=== PATIENT | female | born 1990 | race Asian ===

== ENCOUNTER 2017-06-03 22:57 | Emergency (ER) | payer OTHER ==
[~2017-06-03] VITALS: Ht 172.7 cm; Wt 64.0 kg
[2017-06-04 00:12] LABS: PLATELET COUNT 195 K/uL (152-353)
[2017-06-04 01:41] LABS: POTASSIUM 3.6 mmol/L (3.6-5.2); SODIUM 135 mmol/L (136-145)
[2017-06-04 02:27] VITALS: BP 110/69; TEMP 98.7
== END 2017-06-04 02:32 | disposition home or self-care (01) ==
LOC: ED 22:57
DX: B34.9 Viral infection, unspecified (principal)
CPT/HCPCS: 36415; 80053; 80307; 81000; 85027; 87081; 87804; 87880; 96374; 99284; G0479; J1885

== ENCOUNTER 2019-01-12 06:00 | Emergency (ER) | payer BC ==
[~2019-01-12] VITALS: Ht 170.2 cm; Wt 61.7 kg
[2019-01-12 06:10] VITALS: TEMP 98.5
[2019-01-12 08:30] LABS: PLATELET COUNT 210 K/uL (152-353)
[2019-01-12 09:30] VITALS: BP 118/82
== END 2019-01-12 09:34 | disposition home or self-care (01) ==
LOC: ED 06:00
PROVIDERS: Family Medicine
DX: O03.9 Complete or unspecified spontaneous abortion without complication (principal)
CPT/HCPCS: 36415; 81000; 84702; 85027; 99284

== ENCOUNTER 2019-06-14 21:31 | Outpatient (CLI) | payer BC | END 2019-06-14 22:04 | disposition short-term general hospital (02) | LOC: AMB 21:31 | DX: R10.84 Generalized abdominal pain (principal); O26.93 Pregnancy related conditions, unspecified, third trimester; Z3A.32 32 weeks gestation of pregnancy; V59.9XXA Occupant (driver) (passenger) of pick-up truck or van injured in unspecified traffic accident, initial encounter; Y92.413 State road as the place of occurrence of the external cause | CPT/HCPCS: A0425; A0427 ==

== ENCOUNTER 2021-01-20 16:54 | Outpatient (CLI) | payer OTHER | END 2021-01-20 21:19 | disposition home or self-care (01) | LOC: INF 16:54 | PROVIDERS: ATTEND Internal Medicine | DX: Z23 Encounter for immunization (principal) | CPT/HCPCS: 96372 ==

== ENCOUNTER 2021-02-16 10:30 | Outpatient (CLI) | payer BC, OTHER | END 2021-02-16 20:18 | disposition home or self-care (01) | LOC: INF 10:30 | PROVIDERS: ATTEND Internal Medicine | DX: Z23 Encounter for immunization (principal) | CPT/HCPCS: 96372 ==

== ENCOUNTER 2021-10-05 10:33 | Outpatient (CLI) | payer BC | END 2021-10-05 20:22 | disposition home or self-care (01) | LOC: US 10:33 | PROVIDERS: ATTEND Nurse Practitioner Family | DX: R63.4 Abnormal weight loss (principal); R63.0 Anorexia; R59.9 Enlarged lymph nodes, unspecified ==

== ENCOUNTER 2021-10-18 13:09 | Outpatient (CLI) | payer BC | END 2021-10-18 21:03 | disposition home or self-care (01) | LOC: RAD 13:09 | PROVIDERS: ATTEND Nurse Practitioner Family | DX: G47.00 Insomnia, unspecified (principal); R63.4 Abnormal weight loss; R63.0 Anorexia; R59.0 Localized enlarged lymph nodes; R73.03 Prediabetes | CPT/HCPCS: 93005 ==

== ENCOUNTER 2021-12-06 08:08 | Emergency (ER) | payer BC ==
[~2021-12-06] VITALS: Ht 170.2 cm; Wt 60.8 kg
[2021-12-06 08:14] VITALS: TEMP 98.7
[2021-12-06 09:01] LABS: PLATELET COUNT 206 K/uL (152-353)
[2021-12-06 09:13] LABS: POTASSIUM 3.8 mmol/L (3.6-5.2)
[2021-12-06 10:00] VITALS: BP 116/73
== END 2021-12-06 10:15 | disposition home or self-care (01) ==
LOC: ED 08:08
PROVIDERS: Emergency Medicine
DX: U07.1 COVID-19 (principal)
CPT/HCPCS: 80048; 84484; 85027; 85379; 87635; 93005; 99283; U0003

== ENCOUNTER 2022-12-20 18:53 | Emergency (ER) | payer BC ==
[~2022-12-20] VITALS: Ht 170.2 cm; Wt 65.8 kg
[2022-12-20 21:05] VITALS: BP 119/74; TEMP 100.1
== END 2022-12-20 21:05 | disposition home or self-care (01) ==
LOC: ED 18:53
DX: U07.1 COVID-19 (principal)
CPT/HCPCS: 87502; 87635; 99282; J1885; U0003